=== PATIENT | male | born 1975 | race Caucasian/White ===

== ENCOUNTER 2023-11-19 23:14 | Inpatient (IN) | payer SELFPAY ==
[2023-11-20 03:31] VITALS: BMI 31.3
[2023-11-20] MEDS ORDERED: chlordiazePOXIDE HCL 25 MG CAPSULE PO PRN (11:53)
[2023-11-20] MEDS ORDERED: BENZOCAINE/MENTHOL (CHLORASEPTIC ) LOZENGE MM PRN (12:28)
[2023-11-20] MEDS ORDERED: IBUPROFEN 600 MG TABLET (FP) PO PRN (12:28)
[2023-11-20] MEDS ORDERED: guaiFENesin 600 MG TABLET.ER (FP) PO PRN (12:28)
[2023-11-20] MEDS ORDERED: ONDANSETRON *ODT* 4 MG TABLET SL PRN (12:28)
[2023-11-20] MEDS ORDERED: DICYCLOMINE HCL 10 MG CAPSULE PO PRN (12:28)
[2023-11-20] MEDS ORDERED: LOPERAMIDE HCL 2 MG CAPSULE PO PRN (12:28)
[2023-11-20] MEDS ORDERED: MAGNESIUM HYDROX 2400MG/30ML ORAL SUSPENSION 30 ML CUP PO PRN (12:28)
[2023-11-20] MEDS ORDERED: BENZONATATE 200 MG CAPSULE PO PRN (12:28)
[2023-11-20] MEDS ORDERED: BISMUTH SUBSALICYLATE 524 MG/30 ML PO PRN (12:28)
[2023-11-20] MEDS ORDERED: IBUPROFEN 400 MG TABLET (FP) PO PRN (12:28)
[2023-11-20] MEDS ORDERED: P-EPHED 60MG/TRIPROLIDI 2.5MG TABLET PO PRN (12:28)
[2023-11-20] MEDS ORDERED: POLYETHYLENE GLYCOL (HEALTHYLAX) 3350 17 GM PACKET PO PRN (12:28)
[2023-11-20] MEDS ORDERED: MAG HYDROX/AL HYDROX/SIMETH 30 ML UNIT-DOSE CUP PO PRN (12:28)
[2023-11-20] MEDS ORDERED: chlordiazePOXIDE HCL 25 MG CAPSULE ONE (12:55)
[2023-11-20] MEDS ORDERED: METOPROLOL TARTRATE 25 MG TABLET (FP) ONE (12:55)
[2023-11-20] MEDS: METOPROLOL TARTRATE 25 MG TABLET (FP) PO ONE (12:57)
[2023-11-20] MEDS: chlordiazePOXIDE HCL 25 MG CAPSULE PO SCH (12:58)
[2023-11-20] MEDS: MELATONIN 5 MG TABLETS PO SCH (22:32)
[2023-11-20] MEDS: THIAMINE HCL 100 MG TABLET (FP) PO SCH (22:32)
[2023-11-21] MEDS: PRENATAL VITAMINS W/ FOLIC ACID TABLET (FP) PO SCH (10:40)
[2023-11-21 11:35] LABS: HEMATOCRIT 42.7 % (35.4-49); HEMOGLOBIN 14.9 GM/dL (11.7-16.9); MCH 30.9 pg (25.7-33.7); MCHC 34.9 g/dl (32.0-35.9); MEAN CELL VOLUME 88.8 fl (80-96); PLATELET COUNT 136 10^3/uL (134-434); RBC 4.81 M/mm3 (4.00-5.60); RDW 13.9 % (11.9-15.9); WHITE BLOOD COUNT 5.7 K/mm3 (4.0-10.0)
[2023-11-21 11:51] LABS: ALBUMIN 3.6 g/dl (3.4-5.0); BLOOD UREA NITROGEN 7.8 mg/dL (7-18); CALCIUM 8.2 mg/dL (8.5-10.1)
[2023-11-21 11:54] LABS: CREATININE 0.9 mg/dL (0.55-1.3)
[2023-11-21 11:56] LABS: BILIRUBIN,TOTAL 0.8 mg/dL (0.2-1); TOT PROT 7.5 g/dl (6.4-8.2)
[2023-11-21] MEDS: ACETAMINOPHEN 325 MG TABLET (FP) PO PRN (17:32)
[2023-11-21] MEDS: POTASSIUM CHLORIDE ORAL LIQUID 20 MEQ/15 ML PO ONE ×2 (18:23→22:19)
[2023-11-21] MEDS: INSULIN ASPART SLIDING SCALE (NOVOLOG) 1 VIAL SQ SCH (21:23)
[2023-11-22] MEDS: chlordiazePOXIDE HCL 25 MG CAPSULE PO SCH (05:54)
[2023-11-22 11:19] LABS: POTASSIUM 3.9 mmol/L (3.5-5.1)
[2023-11-22 11:32] LABS: BLOOD UREA NITROGEN 7.5 mg/dL (7-18); CALCIUM 8.4 mg/dL (8.5-10.1)
[2023-11-22 11:36] LABS: CREATININE 0.6 mg/dL (0.55-1.3)
[2023-11-22] MEDS: METHOCARBAMOL 500 MG TABLET PO PRN (22:16)
[2023-11-22] MEDS: propRANOLol HCL 10 MG TABLET PO ONE (22:53)
[2023-11-23] MEDS ORDERED: chlordiazePOXIDE HCL 10 MG CAPSULE PO PRN
[2023-11-23] MEDS: chlordiazePOXIDE HCL 10 MG CAPSULE PO SCH (05:31)
[2023-11-24] MEDS: chlordiazePOXIDE HCL 10 MG CAPSULE PO SCH (05:54)
[2023-11-25] MEDS: chlordiazePOXIDE HCL 10 MG CAPSULE PO ONE (05:37)
[2023-11-25 06:20] VITALS: RESP 16
[2023-11-25 09:25] VITALS: BP 128/80; PULSE 110; TEMP 98.4
== END 2023-11-25 10:28 | disposition home or self-care (01) | DRG 775 ==
LOC: YASAS 23:14 → Y3N 11-20 13:04
PROVIDERS: ADMIT Allergy & Immunology; ATTEND Surgery
PROC: HZ2ZZZZ Detoxification Services for Substance Abuse Treatment (ICD-10-PCS; principal; 2023-11-20)
DX: F10.230 Alcohol dependence with withdrawal, uncomplicated (principal); E87.6 Hypokalemia; R73.9 Hyperglycemia, unspecified; R76.11 Nonspecific reaction to tuberculin skin test without active tuberculosis; R03.0 Elevated blood-pressure reading, without diagnosis of hypertension
CPT/HCPCS: 36415; 71045-TC-FY; 80048; 80053; 82962; 83036; 85027; 86780; 87635; 87811; 93005; 93010

== ENCOUNTER 2024-05-14 18:13 | Inpatient (IN) | payer OTHER ==
[2024-05-14 19:11] VITALS: BMI 34.2
[2024-05-14] MEDS ORDERED: IBUPROFEN 600 MG TABLET (FP) PO PRN (19:44)
[2024-05-14] MEDS ORDERED: IBUPROFEN 400 MG TABLET (FP) PO PRN (19:44)
[2024-05-14] MEDS ORDERED: ONDANSETRON *ODT* 4 MG TABLET SL PRN (19:44)
[2024-05-14] MEDS ORDERED: MAG HYDROX/AL HYDROX/SIMETH 30 ML UNIT-DOSE CUP PO PRN (19:44)
[2024-05-14] MEDS ORDERED: ACETAMINOPHEN 325 MG TABLET (FP) PO PRN (19:44)
[2024-05-14] MEDS ORDERED: BENZOCAINE/MENTHOL (CHLORASEPTIC ) LOZENGE MM PRN (19:44)
[2024-05-14] MEDS ORDERED: MAGNESIUM HYDROX 2400MG/30ML ORAL SUSPENSION 30 ML CUP PO PRN (19:44)
[2024-05-14] MEDS ORDERED: BISMUTH SUBSALICYLATE 524 MG/30 ML PO PRN (19:44)
[2024-05-14] MEDS ORDERED: POLYETHYLENE GLYCOL (HEALTHYLAX) 3350 17 GM PACKET PO PRN (19:44)
[2024-05-14] MEDS ORDERED: DICYCLOMINE HCL 10 MG CAPSULE PO PRN (19:44)
[2024-05-14] MEDS ORDERED: LOPERAMIDE HCL 2 MG CAPSULE PO PRN (19:44)
[2024-05-14] MEDS ORDERED: BENZONATATE 200 MG CAPSULE PO PRN (19:44)
[2024-05-14] MEDS ORDERED: guaiFENesin 600 MG TABLET.ER (FP) PO PRN (19:44)
[2024-05-14] MEDS: chlordiazePOXIDE HCL 25 MG CAPSULE PO ONE (20:02)
[2024-05-14] MEDS ORDERED: chlordiazePOXIDE HCL 25 MG CAPSULE ONE (20:08)
[2024-05-14] MEDS: BACITRACIN 0.9 GM PACKET TP SCH (22:44)
[2024-05-14] MEDS: METHOCARBAMOL 500 MG TABLET PO PRN (22:45)
[2024-05-14] MEDS: THIAMINE 100 MG TABLET PO SCH (22:45)
[2024-05-14] MEDS: MELATONIN 5 MG TABLETS PO SCH (22:45)
[2024-05-14] MEDS: chlordiazePOXIDE HCL 25 MG CAPSULE PO SCH (22:45)
[2024-05-15] MEDS: hydrOXYzine PAMOATE 25 MG CAPSULE (FP) PO PRN (01:56)
[2024-05-15] MEDS: PRENATAL VITAMINS W/ FOLIC ACID TABLET (FP) PO SCH (10:04)
[2024-05-15 11:55] LABS: HEMATOCRIT 37.7 % (35.4-49); HEMOGLOBIN 13.2 GM/dL (11.7-16.9); MCH 30.2 pg (25.7-33.7); MCHC 35.1 g/dl (32.0-35.9); MEAN PLT VOLUME 8.6 fl (7.5-11.1); PLATELET COUNT 61 10^3/uL (134-434); RBC 4.38 M/mm3 (4.00-5.60); RDW 14.5 % (11.9-15.9); WHITE BLOOD COUNT 7.2 K/mm3 (4.0-10.0)
[2024-05-15 12:09] LABS: POTASSIUM 3.8 mmol/L (3.5-5.1)
[2024-05-15 12:17] LABS: CALCIUM 8.5 mg/dL (8.5-10.1)
[2024-05-15 12:20] LABS: BILIRUBIN,TOTAL 0.8 mg/dL (0.2-1); CREATININE 0.6 mg/dL (0.55-1.3)
[2024-05-15] MEDS: chlordiazePOXIDE HCL 25 MG CAPSULE PO PRN (13:38)
[2024-05-15] MEDS: METOPROLOL TARTRATE 25 MG TABLET (FP) PO ONE (22:50)
[2024-05-16] MEDS: chlordiazePOXIDE HCL 25 MG CAPSULE PO SCH (05:25)
[2024-05-17] MEDS ORDERED: chlordiazePOXIDE HCL 10 MG CAPSULE PO PRN
[2024-05-17] MEDS: chlordiazePOXIDE HCL 10 MG CAPSULE PO SCH (05:12)
[2024-05-17] MEDS: propRANOLol HCL 10 MG TABLET PO ONE (20:43)
[2024-05-18] MEDS: chlordiazePOXIDE HCL 10 MG CAPSULE PO SCH (05:28)
[2024-05-18 11:40] LABS: POTASSIUM 3.6 mmol/L (3.5-5.1)
[2024-05-18 11:56] LABS: BLOOD UREA NITROGEN 11.7 mg/dL (7-18)
[2024-05-18 11:57] LABS: BILIRUBIN,TOTAL 0.6 mg/dL (0.2-1); TOT PROT 6.9 g/dl (6.4-8.2)
[2024-05-18 11:58] LABS: CALCIUM 8.7 mg/dL (8.5-10.1)
[2024-05-18 11:59] LABS: CREATININE 0.6 mg/dL (0.55-1.3)
[2024-05-18] MEDS: propRANOLol HCL 10 MG TABLET PO ONE (17:23)
[2024-05-18 20:40] VITALS: RESP 16
[2024-05-19] MEDS: chlordiazePOXIDE HCL 10 MG CAPSULE PO ONE (05:39)
[2024-05-19 06:53] VITALS: BP 114/76; PULSE 63; TEMP 97.6
== END 2024-05-19 09:46 | disposition home or self-care (01) | DRG 775 ==
LOC: YASAS 18:13 → Y3N 20:47
PROVIDERS: ADMIT Allergy & Immunology; ATTEND Surgery
PROC: HZ2ZZZZ Detoxification Services for Substance Abuse Treatment (ICD-10-PCS; principal; 2024-05-14)
DX: F10.230 Alcohol dependence with withdrawal, uncomplicated (principal); R74.01 Elevation of levels of liver transaminase levels; R00.0 Tachycardia, unspecified
CPT/HCPCS: 0241U-QW; 36415; 80053; 80305; 80307; 85027; 93005; 93010